=== PATIENT | female | born 1975 | race Hispanic/Latino ===

== ENCOUNTER 2020-11-14 | Emergency (ER) | payer SELFPAY | END 2020-11-14 22:02 | disposition home or self-care (01) ==

== ENCOUNTER 2023-12-30 12:55 | Outpatient (CLI) | payer OTHER | END 2023-12-30 12:56 | disposition home or self-care (01) | LOC: ULT 12:55 | PROVIDERS: ATTEND Nurse Practitioner Family | DX: N92.4 Excessive bleeding in the premenopausal period (principal); R93.89 Abnormal findings on diagnostic imaging of other specified body structures; N83.202 Unspecified ovarian cyst, left side; D25.9 Leiomyoma of uterus, unspecified | CPT/HCPCS: 76856 ==